=== PATIENT | female | born 1935 | race Caucasian/White ===

== ENCOUNTER 2020-09-19 09:44 | Emergency (ER) | payer MEDICARE, BC ==
--- NOTE | 2020-09-19 10:10 | EDM.PDOC ---
ED HPI GENERAL MEDICAL PROBLEM - General Chief Complaint: Chest Pain Stated Complaint: CHEST PAIN Time Seen by Provider: 09/19/20 09:45 Source of Information: Reports: Patient History Limitations: Reports: No Limitations - History of Present Illness INITIAL COMMENTS - FREE TEXT/NARRATIVE: states she had stent placed 8 yrs ago and never needed a Nitro last nigh developed excessive belging and could not get any relieve till she took nitro 3rd dose of Nitro resolved her chest discomfort Was able to sleep Came in this am as BP is elevated * Has been stressed this week ( and need to check her cardiac status) Denies chest pain at this time Onset: Today, Gradual Onset Date: 09/18/20 Onset Time: 22:00 Duration: Resolved Prior to Arrival Location: Reports: Chest Quality: Reports: Dull Improves with: Reports: None Worsens with: Reports: None Associated Symptoms: Reports: No Other Symptoms - Related Data Allergies Allergy/AdvReac Type Severity Reaction Status Date / Time sulfacetamide sodium Allergy Hives Verified 06/08/13 17:33 [From Sulfamide] Home Meds: Home Meds Aspirin [Halfprin] 81 mg DAILY 06/08/13 [History] Docusate Sodium [Colace] 100 mg PO DAILY 06/08/13 [History] Levothyroxine Sodium 06/08/13 [History] Metoprolol Succinate [Toprol XL] 25 mg 06/08/13 [History] Cefdinir [Omnicef] 300 mg PO BID #20 cap 06/11/13 [Rx] Fluconazole [Diflucan] 150 mg PO ONETIME #1 tablet 06/11/13 [Rx] Warfarin [Coumadin] 2.5 mg PO DAILY 30 Days tab 06/12/13 [Rx] amLODIPine [Norvasc] 2.5 mg PO DAILY #30 tablet 09/19/20 [Rx] ED ROS GENERAL - Review of Systems Review Of Systems: See Below Constitutional: Reports: No Symptoms HEENT: Reports: No Symptoms Respiratory: Reports: No Symptoms Cardiovascular: Reports: Chest Pain. Denies: Dyspnea on Exertion, Edema, PND Endocrine: Reports: Fatigue GI/Abdominal: Reports: No Symptoms Musculoskeletal: Reports: No Symptoms Skin: Reports: No Symptoms Neurological: Reports: No Symptoms. Denies: Dizziness, Headache Psychiatric: Reports: Anxiety Hematologic/Lymphatic: Reports: No Symptoms Immunologic: Reports: No Symptoms ED EXAM, GENERAL - Physical Exam Exam: See Below Exam Limited By: No Limitations General Appearance: Alert, WD/WN, No Apparent Distress Ears: Normal External Exam Nose: Normal Inspection Throat/Mouth: Normal Inspection Head: Atraumatic, Normocephalic Neck: Normal Inspection, Supple, Non-Tender Respiratory/Chest: No Respiratory Distress, Lungs Clear Cardiovascular: Normal Peripheral Pulses, Regular Rate, Rhythm GI/Abdominal: Soft, Non-Tender Extremities: Normal Inspection, Normal Range of Motion Neurological: Alert, Oriented Psychiatric: Normal Affect, Normal Mood #1 Interpretation EKG Date: 09/19/20 Rhythm: NSR [place]: Normal P-Wave: Present QRS: Normal ST-T: Normal Course - Vital Signs Last Recorded V/S: Last Vital Signs Temp 36.6 C 09/19/20 09:44 Pulse 74 09/19/20 10:38 Resp 18 09/19/20 09:44 BP 175/93 H 09/19/20 11:37 Pulse Ox 95 09/19/20 09:44 - Orders/Labs/Meds Orders: Active Orders 24 hr Category Date Time Status EKG Documentation Completion [RC] ASDIRECTED Care 09/19/20 10:15 Active Chest 1V Frontal [CR] Stat Exams 09/19/20 10:16 Taken EKG 12 Lead [EK] Routine Ther 09/19/20 10:14 Ordered Labs: Laboratory Tests 09/19/20 09/19/20 09/19/20 Range/Units 10:15 10:45 10:45 WBC 7.4 (3.0-10.3) x10-3/uL RBC 4.86 (3.60-5.20) x10(6)uL Hgb 14.4 (11.4-15.5) g/dL Hct 44.0 (34.2-48.2) % MCV 90.5 (76.7-100.5) fL MCH 29.5 (23.9-33.9) pg MCHC 32.6 (31.9-34.8) g/dL RDW 13.3 (12.3-16.5) % Plt Count 304 (151-488) x10(3)uL MPV 8.6 (7.1-12.4) fL Neut % (Auto) 71.1 (30.8-76.2) % Lymph % (Auto) 17.1 L (18.4-52.1) % [place] % (Auto) 5.4 (4.4-15.7) % Eos % (Auto) 5.3 (0.6-8.1) % Baso % (Auto) 1.1 (0.2-1.5) % Neut # (Auto) 5.2 (1.5-6.3) x10-3/uL Lymph # (Auto) 1.3 (1.0-4.4) x10-3/uL Benson # (Auto) 0.4 (0.3-1.0) x10-3/uL Eos # (Auto) 0.4 (0.0-0.8) x10-3/uL Baso # (Auto) 0.1 (0.0-0.1) x10-3/uL PT (9.0-11.1) sec INR (1.00-1.24) Sodium 141 (135-145) mmol/L Potassium 4.2 (3.5-5.3) mmol/L Chloride 103 (100-110) mmol/L Carbon Dioxide 27 (21-32) mmol/L BUN 14 (7-18) mg/dL Creatinine 1.2 H (0.55-1.02) mg/dL Est Cr Clr Drug Dosing 28.04 mL/min Estimated GFR (MDRD) 42 L (>60) BUN/Creatinine Ratio 11.7 (9-20) Glucose 160 H (80-116) mg/dL Calcium 9.4 (8.6-10.2) mg/dL Total Bilirubin 0.5 (0.1-1.3) mg/dL AST 16 (5-25) IU/L ALT 18 (12-36) U/L Alkaline Phosphatase 65 (56-112) IU/L Troponin I (4.0-60.3) pg/mL Total Protein 7.2 (6.0-8.0) g/dL Albumin 3.8 (3.2-4.6) g/dL Globulin 3.4 g/dL Albumin/Globulin Ratio 1.1 Urine Color Yellow (YELLOW) Urine Appearance Clear (CLEAR) Urine pH 5.0 (5.0-6.5) Ur Specific [place] 1.015 (1.010-1.025) Urine Protein Negative (NEGATIVE) mg/dL Urine Glucose (UA) Normal (NORMAL) mg/dL Urine Ketones Negative (NEGATIVE) mg/dL Urine Occult Blood Negative (NEGATIVE) Urine Nitrite Negative (NEGATIVE) Urine Bilirubin Negative (NEGATIVE) Urine Urobilinogen Normal (NEGATIVE) mg/dL Ur Leukocyte Esterase Negative (NEGATIVE) Urine RBC 0-5 (0-5) Urine WBC 0-5 (0-5) Ur Squamous Epith Cells Occasional (NS,R,O) 09/19/20 09/19/20 Range/Units 10:45 10:45 WBC (3.0-10.3) x10-3/uL RBC (3.60-5.20) x10(6)uL Hgb (11.4-15.5) g/dL Hct (34.2-48.2) % MCV (76.7-100.5) fL MCH (23.9-33.9) pg MCHC (31.9-34.8) g/dL RDW (12.3-16.5) % Plt Count (151-488) x10(3)uL MPV (7.1-12.4) fL Neut % (Auto) (30.8-76.2) % Lymph % (Auto) (18.4-52.1) % [place] % (Auto) (4.4-15.7) % Eos % (Auto) (0.6-8.1) % Baso % (Auto) (0.2-1.5) % Neut # (Auto) (1.5-6.3) x10-3/uL Lymph # (Auto) (1.0-4.4) x10-3/uL [place] # (Auto) (0.3-1.0) x10-3/uL Eos # (Auto) (0.0-0.8) x10-3/uL Baso # (Auto) (0.0-0.1) x10-3/uL PT 10.5 (9.0-11.1) sec INR 0.97 L (1.00-1.24) Sodium (135-145) mmol/L Potassium (3.5-5.3) mmol/L Chloride (100-110) mmol/L Carbon Dioxide (21-32) mmol/L BUN (7-18) mg/dL Creatinine (0.55-1.02) mg/dL Est Cr Clr Drug Dosing mL/min Estimated GFR (MDRD) (>60) BUN/Creatinine Ratio (9-20) Glucose (80-116) mg/dL Calcium (8.6-10.2) mg/dL Total Bilirubin (0.1-1.3) mg/dL AST (5-25) IU/L ALT (12-36) U/L Alkaline Phosphatase (56-112) IU/L Troponin I 6.9 (4.0-60.3) pg/mL Total Protein (6.0-8.0) g/dL Albumin (3.2-4.6) g/dL Globulin g/dL Albumin/Globulin Ratio Urine Color (YELLOW) Urine Appearance (CLEAR) Urine pH (5.0-6.5) Ur Specific [place] (1.010-1.025) Urine Protein (NEGATIVE) mg/dL Urine Glucose (UA) (NORMAL) mg/dL Urine Ketones (NEGATIVE) mg/dL Urine Occult Blood (NEGATIVE) Urine Nitrite (NEGATIVE) Urine Bilirubin (NEGATIVE) Urine Urobilinogen (NEGATIVE) mg/dL Ur Leukocyte Esterase (NEGATIVE) Urine RBC (0-5) Urine WBC (0-5) Ur Squamous Epith Cells (NS,R,O) Meds: Medications Discontinued Medications Generic Name Dose Route Start Last Admin Trade Name Irwin PRN Reason Stop Dose Admin Amlodipine Besylate 2.5 mg 09/19/20 11:15 09/19/20 12:20 Norvasc PO 09/19/20 11:16 Not Given ONETIME ONE Amlodipine Besylate Confirm 09/19/20 11:32 09/19/20 11:37 Norvasc Administered 09/19/20 11:33 Not Given Dose 5 mg .ROUTE .STK-MED ONE Amlodipine Besylate 2.5 mg 09/19/20 11:35 09/19/20 11:37 Norvasc PO 09/19/20 11:36 2.5 mg ONETIME ONE Administration Lorazepam 0.5 mg 09/19/20 11:57 09/19/20 12:19 Ativan IVPUSH 09/19/20 11:58 0.5 mg ONETIME ONE Administration Metoprolol Succinate 25 mg 09/19/20 10:17 09/19/20 10:38 Toprol Xl PO 09/19/20 10:18 25 mg ONETIME ONE Administration - Re-Assessments/Exams Free Text/Narrative Re-Assessment/Exam: 09/19/20 12:53 pt had EKG , Cxray and labs done All came back negative Blood pressure was noted to be elevated pt was given extra dose of metoprolol : no effect on BP but HR decreased Still had no symptoms Then she was given Ativan ( has been under stress) and then given dose Norvasc BP had remained persistently high > 170 systolic After 30 mins of Norvasc : BP did gradually decrease Pt feels much better Departure - Departure Time of Disposition: 13:10 Disposition: Home, Self-Care 01 Condition: Good Clinical Impression: Hypertension, uncontrolled, Atypical chest pain Prescriptions: amLODIPine [Norvasc] 2.5 mg PO DAILY #30 tablet Instructions: Hypertension, Adult, [id number], Managing Your Hypertension Referrals: Todd Vidal MD [Primary Care Provider] - Forms: ED Department Discharge Additional Instructions: 1) Low salt diet 2) Check blood pressure 2 times daily , record and show to your PCP on follow up in one week Start Norvasc 2.5 mg if BP >160/90 3) Follow up with your PCP in 1-2 weeks Sepsis Event Note (ED) - Focused Exam Vital Signs: Vital Signs Temp Pulse Pulse Resp BP BP Pulse Ox 09/19/20 11:37 175/93 H 09/19/20 10:38 74 193/94 H 09/19/20 09:44 36.6 C 75 18 175/82 H 95 - My Orders Last 24 Hours: My Active Orders 09/19/20 10:14 EKG 12 Lead [EK] Routine 09/19/20 10:15 EKG Documentation Completion [RC] ASDIRECTED 09/19/20 10:16 Chest 1V Frontal [CR] Stat - Assessment/Plan Last 24 Hours: My Active Orders 09/19/20 10:14 EKG 12 Lead [EK] Routine 09/19/20 10:15 EKG Documentation Completion [RC] ASDIRECTED 09/19/20 10:16 Chest 1V Frontal [CR] Stat
[2020-09-19] MEDS ORDERED: Metoprolol Succinate 25 MG Tab.ER PO ONE (10:17)
[2020-09-19] MEDS ORDERED: amLODIPine 2.5 MG Tab PO ONE (11:15)
[2020-09-19] MEDS ORDERED: amLODIPine 5 MG Tab ONE (11:32)
[2020-09-19] MEDS ORDERED: amLODIPine 5 MG Tab PO ONE (11:35)
[2020-09-19] MEDS ORDERED: LORazepam 2 MG/ML SDV IVPUSH ONE (11:57)
[2020-09-19 15:55] VITALS: BP 133/72; PULSE 64
--- NOTE | 2020-09-21 09:56 | CR ---
INDICATION: Chest pain. CHEST, ONE VIEW: AP portable upright view of the chest 09/19/20 was compared with 06/08/13. The heart appears mildly enlarged with post-median sternotomy change, mildly tortuous aorta with calcification and overlying EKG leads. A definite active infiltrate or effusion was not identified. IMPRESSION: No acute process. MTDD
== END 2020-09-19 13:28 | disposition home or self-care (01) ==
LOC: FB.ED 09:44
DX: I10 Essential (primary) hypertension (principal); Z88.2 Allergy status to sulfonamides; Z79.82 Long term (current) use of aspirin; Z79.01 Long term (current) use of anticoagulants; Z79.899 Other long term (current) drug therapy
CPT/HCPCS: 36415; 71045; 80053; 81001; 84484; 85025; 85610; 93005; 93010; 96374; 99284; 99285-25; A9270-GY; J2060